=== PATIENT | female | born 1980 | race Caucasian/White ===

== ENCOUNTER 2020-07-09 19:27 | Emergency (ER) | payer SELFPAY ==
[2020-07-09 20:11] LABS: BILIRUBIN,URINE NEGATIVE (NEGATIVE); GLUCOSE, URINE (UA) 100 mg/dL (NEGATIVE); KETONES,URINE (UA) NEGATIVE (NEGATIVE); LEUKOCYTE ESTERASE, URINE NEGATIVE (NEGATIVE); NITRITE,URINE NEGATIVE (NEGATIVE); OCCULT BLOOD,URINE NEGATIVE (NEGATIVE); PH,URINE 6.5 PH (5.0-7.5); PROTEIN,URINE NEGATIVE (NEGATIVE); UROBILINOGEN,URINE 0.2 (NORMAL) E.U./dL (NORMAL)
[2020-07-09] MEDS ORDERED: ONDANSETRON 4 MG/2 ML VIAL IVP STA ×2 (20:15→23:19)
[2020-07-09] MEDS ORDERED: HYDROmorphone 1 MG/ML CARPUJECT IVP STA ×2 (20:15→21:09)
--- NOTE | 2020-07-09 20:16 | ED Physician Documentation ---
PD HPI ABD PAIN - Stated complaint Stated Complaint: ABD PX, VOMITING - Chief complaint Chief Complaint: Abd Pain - History obtained from History obtained from: Patient - Additional information Additional information: 40-year-old woman with history of recurrent ovarian cysts and cyst drainage x1 in the past presents with right lower quadrant pain, nausea and vomiting progressive over the last 24 hours. It is not associated with fever. LMP was June 23 so the timing would be right for a cyst. No other abdominal surgeries in the past. No trouble with urination or bowel movement. Review of Systems Ten Systems: 10 systems reviewed and negative Constitutional: reports: Reviewed and negative Throat: reports: Reviewed and negative Cardiac: reports: Reviewed and negative Respiratory: reports: Reviewed and negative PD PAST MEDICAL HISTORY - Present Medications Home Medications: Ambulatory Orders Medication Instructions Recorded Confirmed metFORMIN [Glucophage] 500 mg PO BIDWM 07/09/20 07/09/20 Ondansetron Odt [Zofran] 4 mg TL Q6H PRN #10 tablet 07/10/20 oxyCODONE [Roxicodone] 5 mg PO Q6H PRN #10 tablet 07/10/20 - Allergies Allergies/Adverse Reactions: Allergies Allergy/AdvReac Type Severity Reaction Status Date / Time metoclopramide [From Reglan] Allergy Unknown Verified 07/09/20 19:39 NSAIDS (Non-Steroidal Allergy Anaphylaxis Verified 07/09/20 19:39 Anti-Inflamma PD ED PE NORMAL - Vitals Vital signs reviewed: Yes - General General: Alert and oriented X 3, Other (uncomfortable) - HEENT HEENT: PERRL, EOMI - Neck Neck: Supple, no meningeal sign, No bony TTP - Cardiac Cardiac: RRR, No murmur - Respiratory Respiratory: No respiratory distress, Clear bilaterally - Abdomen Abdomen: Normal bowel sounds, Soft, Other (Tender in the right lower quadrant/pelvis without surgical signs. Negative Rovsing's.) - Back Back: No CVA TTP, No spinal TTP - Derm Derm: Normal color, Warm and dry - Extremities Extremities: No edema, No calf tenderness / cord - Neuro Neuro: Alert and oriented X 3, Normal speech Results - Vitals Vitals: Vital Signs - 24 hr 07/09/20 07/09/20 07/09/20 19:34 20:42 21:16 Temperature 36.5 C Heart Rate 109 H 113 H 116 H Respiratory 17 16 18 Rate Blood Pressure 167/100 H 144/100 H 140/91 H O2 Saturation 98 95 97 07/09/20 07/09/20 07/09/20 22:11 23:05 23:11 Temperature 37.1 C Heart Rate 120 H 110 H 106 H Respiratory 18 18 16 Rate Blood Pressure 135/94 H 131/111 H 154/103 H O2 Saturation 95 97 95 07/09/20 07/09/20 07/10/20 23:15 23:20 00:43 Temperature Heart Rate 124 H 100 101 H Respiratory 18 16 18 Rate Blood Pressure 144/97 H 155/108 H 149/106 H O2 Saturation 95 95 92 Oxygen O2 Source Room air - Labs Labs: Laboratory Tests 07/09/20 07/09/20 07/09/20 19:48 19:51 20:18 WBC 7.0 RBC 3.91 L Hgb 10.4 L Hct 33.2 L MCV 84.9 MCH 26.6 L MCHC 31.3 L RDW 15.2 H Plt Count 387 MPV 9.6 Neut # (Auto) 4.9 Lymph # (Auto) 1.4 L [place] # (Auto) 0.5 Eos # (Auto) 0.2 Baso # (Auto) 0.0 Absolute Nucleated RBC 0.00 Nucleated RBC % 0.0 Sodium Potassium Chloride Carbon Dioxide Anion Gap BUN Creatinine Estimated GFR (MDRD) Glucose Calcium Total Bilirubin AST ALT Alkaline Phosphatase Total Protein Albumin Globulin Albumin/Globulin Ratio Lipase Urine Color STRAW Urine Clarity CLEAR Urine pH 6.5 Ur Specific [place] <=1.005 Urine Protein NEGATIVE Urine Glucose (UA) 100 H Urine Ketones NEGATIVE Urine Occult Blood NEGATIVE Urine Nitrite NEGATIVE Urine Bilirubin NEGATIVE Urine Urobilinogen 0.2 (NORMAL) Ur Leukocyte Esterase NEGATIVE Ur Microscopic Review NOT INDICATED Urine Culture Comments NOT INDICATED Urine HCG, Qual NEGATIVE 07/09/20 20:18 WBC RBC Hgb Hct MCV MCH MCHC RDW Plt Count MPV Neut # (Auto) Lymph # (Auto) [place] # (Auto) Eos # (Auto) Baso # (Auto) Absolute Nucleated RBC Nucleated RBC % Sodium 134 L Potassium 3.9 Chloride 99 L Carbon Dioxide 21 Anion Gap 14.0 H BUN 13 Creatinine 0.8 Estimated GFR (MDRD) 80 L Glucose 193 H Calcium 9.1 Total Bilirubin 0.5 AST 29 ALT 36 Alkaline Phosphatase 70 Total Protein 7.1 Albumin 3.8 Globulin 3.3 Albumin/Globulin Ratio 1.2 Lipase 26 Urine Color Urine Clarity Urine pH Ur Specific [place] Urine Protein Urine Glucose (UA) Urine Ketones Urine Occult Blood Urine Nitrite Urine Bilirubin Urine Urobilinogen Ur Leukocyte Esterase Ur Microscopic Review Urine Culture Comments Urine HCG, Qual PD MEDICAL DECISION MAKING - ED course ED course: 40yo woman, new to the area with gradual onset RLQ pain x 1 day. Timing right for cyst and sono done but neg. Followed by CT to evaluate for appy, also neg. Pt did not report having prior appendectomy, just ovarian cyst drainage. Departure - Departure Disposition: Home, Self Care Clinical Impression: Abdominal pain Qualifiers: Abdominal location: generalized Qualified Code(s): R10.84 - Generalized abdominal pain Condition: Good Instructions: ED Abdominal Pain Unkn Cause Prescriptions: oxyCODONE [Roxicodone] 5 mg PO Q6H PRN #10 tablet PRN Reason: Pain Ondansetron Odt [Zofran] 4 mg TL Q6H PRN #10 tablet PRN Reason: Nausea / Vomiting Discharge Date/Time: 07/10/20 00:50
[2020-07-09 20:17] LABS: CLARITY,URINE CLEAR (CLEAR)
[2020-07-09 20:18] LABS: HCG UR QUAL NEGATIVE
[2020-07-09 20:34] LABS: BASOPHILS % (AUTO) 0.4 %; EOSINOPHILS # (AUTO) 0.2 10^3/uL (0.0-0.7); EOSINOPHILS % (AUTO) 2.6 %; HGB - HEMOGLOBIN 10.4 g/dL (12.0-16.0); LYMPHOCYTES # (AUTO) 1.4 10^3/uL (1.5-3.5); LYMPHOCYTES % (AUTO) 19.6 %; MEAN CORPUSCULAR HEMOGLOBIN 26.6 pg (27.0-31.0); MEAN CORPUSCULAR HGB CONC 31.3 g/dL (32.0-36.0); MEAN CORPUSCULAR VOLUME 84.9 fL (81.0-99.0); MEAN PLATELET VOLUME 9.6 fL (7.9-10.8); MONOCYTES # (AUTO) 0.5 10^3/uL (0.0-1.0); MONOCYTES % (AUTO) 7.4 %; NEUTROPHILS # (AUTO) 4.9 10^3/uL (1.5-6.6); NEUTROPHILS % (AUTO) 69.6 %; PLT - PLATELET COUNT 387 10^3/uL (130-450); RED BLOOD COUNT 3.91 10^6/uL (4.20-5.40); RED CELL DISTRIBUTION WIDTH 15.2 % (12.0-15.0)
[2020-07-09 20:49] LABS: ALBUMIN 3.8 g/dL (3.2-5.5); ALBUMIN/GLOBULIN RATIO 1.2 (1.0-2.2); BILIRUBIN,TOTAL 0.5 mg/dL (0.2-1.0); CALCIUM 9.1 mg/dL (8.5-10.3); CREATININE 0.8 mg/dL (0.4-1.0); TOTAL PROTEIN 7.1 g/dL (6.7-8.2)
[2020-07-09] MEDS ORDERED: IOVERSOL 320 100 ML VIAL IVP ONE ×2 (22:41→23:08)
[2020-07-09] MEDS ORDERED: diphenhydrAMINE INJ 50 MG/ML VIAL IVP STA (22:57)
[2020-07-09] MEDS ORDERED: methylPREDNISolone SUCCINATE 125 MG/2 ML VIAL IVP STA (22:57)
[2020-07-10] MEDS ORDERED: HYDROmorphone 1 MG/ML CARPUJECT IVP STA (00:13)
[2020-07-10] MEDS ORDERED: ONDANSETRON ODT 4 MG Prepack 2 TL PRN (00:13)
[2020-07-10 01:12] VITALS: BP 149/106
--- NOTE | 2020-07-10 11:54 | Ultrasound Report ---
PROCEDURE: Pelvic w/Transvag+Doppler Comp INDICATIONS: pelvic pain, R TECHNIQUE: Real-time scanning was performed of the pelvic organs, with image documentation. Additional endovagi nal scanning was necessary due to incomplete visualization of the adnexal and endometrial structures by transabdominal scanning. COMPARISON: None. FINDINGS: Transabdominal and transvaginal ultrasound was performed. LMP: 06/23/2020. The uterus measures 5.7 x 2.1 x 2.8 cm. The uterus is anteverted/anteflexed. No uterine mass. The kunal rine echotexture is heterogenous. Endometrium measures 1 mm in thickness. There is no endometrial mas s. Right ovary: 1.6 x 0.9 x 1.3 cm. No mass. Normal color Doppler. Normal arterial and venous waveforms. No evidence of torsion. Left ovary: 3.0 x 1.8 x 1.4 cm. No mass. Normal color Doppler. Normal arterial and venous waveforms. No evidence of torsion. Findings concur with preliminary radiology interpretation. IMPRESSION: No acute ultrasound abnormality of the pelvis. Reviewed by: Dhruv Jacobsen on 07/10/2020 11:53 AM PST Approved by: Dhruv Jacobsen on 07/10/2020 11:53 AM [facility] Station ID: [id number]
--- NOTE | 2020-07-10 12:00 | CT Report ---
PROCEDURE: Abdomen/Pelvis W INDICATIONS: IV only, RLQ pain CONTRAST: IV CONTRAST: Optiray 320 ml: 100 PO CONTRAST: *NO PO CONTRAST TECHNIQUE: After the administration of 100 mL of Omnipaque 320 contrast, 5 mm thick sections acquired from the d iaphragms to the symphysis. 5 mm thick coronal and sagittal reformats were acquired. For radiation dose reduction, the following was used: automated exposure control, adjustment of mA and/or kV accor ding to patient size. COMPARISON: None. FINDINGS: Image quality: Excellent. ABDOMEN: Lung bases: Lung bases are clear. Heart size is normal. Solid organs: The liver demonstrates low density consistent with hepatic steatosis. The spleen is nor mal in size and enhancement. Gallbladder is normal Biliary system is non dilated. Pancreas enhance s normally. No adrenal nodules. Kidneys demonstrate normal size and enhancement, without hydronephr osis. Peritoneum and bowel: Bowel loops demonstrate normal wall thickness and caliber. No free fluid or a ir. Nodes and vessels: No retroperitoneal or mesenteric adenopathy by size criteria. Aorta and inferior vena cava are normal in size. Miscellaneous: No ventral hernias. PELVIS: Genitourinary: Bladder wall thickness is normal. Miscellaneous: No inguinal hernias or adenopathy. Bones: No suspicious bony lesions. No vertebral body compression fractures. IMPRESSION: 1. Hepatic steatosis. 2. No acute abdominal or pelvic abnormality. Reviewed by: Dhruv Jacobsen on 07/10/2020 11:59 AM [facility] Approved by: Dhruv Jacobsen on 07/10/2020 11:59 AM [facility] Station ID: [id number]
== END 2020-07-10 00:50 | disposition home or self-care (01) ==
LOC: ED 19:27
DX: R10.84 Generalized abdominal pain (principal); R11.2 Nausea with vomiting, unspecified; K76.0 Fatty (change of) liver, not elsewhere classified
CPT/HCPCS: 36415; 74177; 76830; 76856; 80053; 81003; 81025; 83690; 85025; 93975; 96374; 96375; 96376; 99284; 99285; J1170; J1200; Q9967; 81001; 87086